=== PATIENT | male | born 1970 | race Asian ===

== ENCOUNTER 2017-12-21 11:59 | Emergency (ER) | payer OTHER ==
[~2017-12-21] VITALS: Ht 167.6 cm; Wt 68.0 kg
[2017-12-21 12:00] VITALS: BP_SYST 133
[2017-12-21 12:44] VITALS: BP_SYST 129
== END 2017-12-21 12:33 | disposition home or self-care (01) ==
LOC: SED 11:59
DX: S61.213A Laceration without foreign body of left middle finger without damage to nail, initial encounter (principal); I10 Essential (primary) hypertension; W46.0XXA Contact with hypodermic needle, initial encounter; Y93.89 Activity, other specified; Y92.238 Other place in hospital as the place of occurrence of the external cause; Y99.8 Other external cause status
CPT/HCPCS: 36415; 86704; 86706; 86803; 87340; 99284

== ENCOUNTER 2018-02-02 08:16 | Outpatient (CLI) | payer OTHER ==
[2018-02-03 13:32] LABS: HEPATITIS B CORE AB, TOTAL Negative (Negative); HEPATITIS B SURFACE AG Negative (Negative); HEPATITIS C VIRUS AB <0.1 s/co ratio (0.0-0.9)
== END 2018-02-02 19:49 | disposition home or self-care (01) ==
LOC: SLB 08:16
PROVIDERS: ATTEND Internal Medicine Hospice and Palliative Medicine
DX: Z77.21 Contact with and (suspected) exposure to potentially hazardous body fluids (principal); T14.8XXA Other injury of unspecified body region, initial encounter; W46.0XXA Contact with hypodermic needle, initial encounter; Y93.F9 Activity, other caregiving; Y92.238 Other place in hospital as the place of occurrence of the external cause; Y99.0 Civilian activity done for income or pay
CPT/HCPCS: 36415; 86704; 86706; 86803; 87340